=== PATIENT | female | born 1945 | race Hispanic/Latino ===

== ENCOUNTER 2016-11-24 18:32 | Emergency (ER) | payer MEDICARE ==
[2016-11-24 19:37] LABS: Basophils % (Auto) 0.9 % (0.0-1.8); Eosinophils % (Auto) 2.5 % (0.0-4.3); Hematocrit 35.2 % (30.3-42.9); Hemoglobin 11.9 gm/dl (10.1-14.3); Mean Corpuscular HGB Conc 34 % (30-34); Mean Corpuscular Hemoglobin 30 pg (28-32); Mean Corpuscular Volume 89 fl (79-97); Platelet Count 303 K/mm3 (140-440); Red Blood Count 3.97 M/mm3 (3.65-5.03); Red Cell Distribution Width 13.6 % (13.2-15.2); White Blood Count 8.5 K/mm3 (4.5-11.0)
[2016-11-24 19:53] LABS: Anion Gap 22 mmol/L; BUN/Creatinine Ratio 16.36; Blood Urea Nitrogen 18 mg/dL (7-17); Calcium 9.9 mg/dL (8.4-10.2); Carbon Dioxide 22 mmol/L (22-30); Chloride 83.9 mmol/L (98-107); Glucose 115 mg/dL (65-100); Potassium 4.4 mmol/L (3.6-5.0); Sodium 123 mmol/L (137-145)
[2016-11-24] MEDS ORDERED: APRESOLINE IV ONE (22:32)
[2016-11-24] MEDS ORDERED: ATIVAN IV ONE (22:32)
[2016-11-24] MEDS ORDERED: NACL 0.9% 1000 ML 1,000 ML IV ONE (22:32)
--- NOTE | 2016-11-24 22:34 | Emergency Department Report ---
ED Chest Pain HPI - General Chief Complaint: Chest Pain Stated Complaint: SOB/CHEST PAIN Time Seen by Provider: 11/24/16 22:16 Source: patient Mode of arrival: Ambulatory Limitations: No Limitations - History of Present Illness Initial Comments: Patient complains of headache as well as pounding in her chest starting suddenly while resting comfortably watching TV. Patient is well-known to me. I saw HER-2 days ago. She was also admitted to the hospital 6 nights ago and initial admission was for hypotension due to heart block from using beta nabil eyedrops. I saw her for same complaint as today. She was slightly hypertensive and anxious as well as complaining of headache at that time. Her presentation today is almost identical to her presentation from 2 days ago. Please refer to my note from 2 days ago. Specifically today she denies nausea. She denies any neurologic complaints but for the headache and some tingling in her arms bilaterally when this initially started. She has been compliant with the hydralazine losartan and isosorbide. She does produce demonstrate numbers of her blood pressure. They've ranged in the 150s to the 120s systolically over the past 2 days. Appointment with her doctor on Wednesday. MD Complaint: chest pain -: Sudden Pain Location: substernal Pain Radiation: none Severity: moderate Quality: heaviness Improves With: nothing Worsens With: nothing - Related Data Home Medications Medication Instructions Recorded Confirmed Last Taken Besifloxacin HCl [Besivance 0.6%] 1 drop OD DAILY 11/19/16 11/19/16 11/19/16 Cholecalciferol (Vitamin D3) 1 tab PO DAILY 11/19/16 11/19/16 11/19/16 [Vitamin D3] Difluprednate [Durezol 0.05%] 1 drop OU DAILY 11/19/16 11/19/16 11/19/16 Folic Acid 1 mg PO DAILY 11/19/16 11/19/16 11/19/16 Losartan/Hydrochlorothiazide 1 tab PO DAILY 11/19/16 11/19/16 11/19/16 [Losartan-Hctz 100-25 mg Tab] Meloxicam 15 mg PO DAILY 11/19/16 11/19/16 Unknown Nepafenac [Ilevro 0.3%] 1.7 ml OD DAILY 11/19/16 11/19/16 11/19/16 Nepafenac [Ilevro 0.3%] 1.7 ml OD DAILY 11/19/16 11/19/16 11/19/16 [place]-3 Fatty Acids/Fish Oil [Fish 1 tab PO DAILY 11/19/16 11/19/16 Unknown Oil 1,000 mg Softgel] Oxycodone HCl/Acetaminophen 1 tab PO Q6H PRN 11/19/16 11/19/16 11/19/16 [OxyCODONE-Acetaminophen 7.5-325] Potassium Chloride [Klor-Con M20] 20 meq PO DAILY 11/19/16 11/19/16 Unknown Pravastatin Sodium 40 mg PO DAILY 11/19/16 11/19/16 11/19/16 Promethazine HCl 25 mg PO PRN PRN 11/19/16 11/19/16 Unknown Tizanidine HCl 4 mg PO QHS 11/19/16 11/19/16 2 Days Ago Ubidecarenone [Coenzyme Q-10] 200 mg PO DAILY 11/19/16 11/19/16 11/19/16 Zolpidem Tartrate 10 mg PO QHS 11/19/16 11/19/16 11/18/16 Previous Rx's Medication Instructions Recorded Last Taken Type hydrALAZINE [Apresoline TAB] 25 mg PO BID #60 tablet 11/20/16 Unknown Rx hydrALAZINE [Apresoline TAB] 100 mg PO TID #90 tab 11/21/16 Unknown Rx ISOSORBIDE MONOnitrate [Imdur ER] 60 mg PO QDAY #30 tab.er.24h 11/23/16 Unknown Rx LORazepam [Ativan] 1 mg PO BID PRN #20 tab 11/24/16 Unknown Rx Allergies Allergy/AdvReac Type Severity Reaction Status Date / Time No Known Allergies Allergy Unverified 11/19/16 13:20 VU score - Vu Score Age > 65: (1) Yes Aspirin use within the Past 7 Days: (1) Yes 3 or more CAD Risk Factors: (0) No 2 or more Angina events in past 24 hrs: (1) Yes Known CAD with more than 50% Stenosis: (0) No Elevated Cardiac Markers: (0) No ST Deviation Greater than 0.5mm: (0) No VU Score: 3 ED Review of Systems ROS: Stated complaint: SOB/CHEST PAIN Other details as noted in HPI Comment: All other systems reviewed and negative Constitutional: denies: chills, fever Eyes: denies: eye pain, eye discharge, vision change ENT: denies: ear pain, throat pain Respiratory: denies: cough, shortness of breath, wheezing Cardiovascular: chest pain. denies: palpitations Endocrine: no symptoms reported Gastrointestinal: denies: abdominal pain, nausea, diarrhea Genitourinary: denies: urgency, dysuria, discharge Musculoskeletal: denies: back pain, joint swelling, arthralgia Skin: denies: rash, lesions Neurological: headache, paresthesias. denies: weakness Psychiatric: denies: anxiety, depression Hematological/Lymphatic: denies: easy bleeding, easy bruising ED Past Medical Hx - Past Medical History Hx Hypertension: Yes Additional medical history: thyroid - Surgical History Hx Appendectomy: Yes Additional Surgical History: hysterectomy. wrist surgery. knee surgery - Social History Smoking Status: Former Smoker Substance Use Type: Alcohol - Medications Home Medications: Home Medications Medication Instructions Recorded Confirmed Last Taken Type Besifloxacin HCl [Besivance 0.6%] 1 drop OD DAILY 11/19/16 11/19/16 11/19/16 History Cholecalciferol (Vitamin D3) 1 tab PO DAILY 11/19/16 11/19/16 11/19/16 History [Vitamin D3] Difluprednate [Durezol 0.05%] 1 drop OU DAILY 11/19/16 11/19/16 11/19/16 History Folic Acid 1 mg PO DAILY 11/19/16 11/19/16 11/19/16 History Losartan/Hydrochlorothiazide 1 tab PO DAILY 11/19/16 11/19/16 11/19/16 History [Losartan-Hctz 100-25 mg Tab] Meloxicam 15 mg PO DAILY 11/19/16 11/19/16 Unknown History Nepafenac [Ilevro 0.3%] 1.7 ml OD DAILY 11/19/16 11/19/16 11/19/16 History Nepafenac [Ilevro 0.3%] 1.7 ml OD DAILY 11/19/16 11/19/16 11/19/16 History [place]-3 Fatty Acids/Fish Oil [Fish 1 tab PO DAILY 11/19/16 11/19/16 Unknown History Oil 1,000 mg Softgel] Oxycodone HCl/Acetaminophen 1 tab PO Q6H PRN 11/19/16 11/19/16 11/19/16 History [OxyCODONE-Acetaminophen 7.5-325] Potassium Chloride [Klor-Con M20] 20 meq PO DAILY 11/19/16 11/19/16 Unknown History Pravastatin Sodium 40 mg PO DAILY 11/19/16 11/19/16 11/19/16 History Promethazine HCl 25 mg PO PRN PRN 11/19/16 11/19/16 Unknown History Tizanidine HCl 4 mg PO QHS 11/19/16 11/19/16 2 Days Ago History Ubidecarenone [Coenzyme Q-10] 200 mg PO DAILY 11/19/16 11/19/16 11/19/16 History Zolpidem Tartrate 10 mg PO QHS 11/19/16 11/19/16 11/18/16 History hydrALAZINE [Apresoline TAB] 25 mg PO BID #60 tablet 11/20/16 Unknown Rx hydrALAZINE [Apresoline TAB] 100 mg PO TID #90 tab 11/21/16 Unknown Rx ISOSORBIDE MONOnitrate [Imdur ER] 60 mg PO QDAY #30 tab.er.24h 11/23/16 Unknown Rx LORazepam [Ativan] 1 mg PO BID PRN #20 tab 11/24/16 Unknown Rx ED Physical Exam - General Limitations: No Limitations General appearance: alert, in no apparent distress, anxious - Head Head exam: Present: atraumatic, normocephalic - Eye Eye exam: Present: normal appearance, EOMI. Absent: scleral icterus - ENT ENT exam: Present: normal exam, normal orophraynx, mucous membranes moist - Neck Neck exam: Present: normal inspection, full ROM. Absent: tenderness - Respiratory Respiratory exam: Present: normal lung sounds bilaterally. Absent: respiratory distress, wheezes, rales - Cardiovascular Cardiovascular Exam: Present: regular rate, normal rhythm. Absent: systolic murmur, diastolic murmur, rubs, gallop - GI/Abdominal GI/Abdominal exam: Present: soft, normal bowel sounds. Absent: tenderness, guarding - Extremities Exam Extremities exam: Present: normal inspection. Absent: tenderness, pedal edema, calf tenderness - Back Exam Back exam: Present: normal inspection, full ROM. Absent: tenderness, CVA tenderness (R), CVA tenderness (L) - Neurological Exam Neurological exam: Present: alert, oriented X3, CN II-XII intact, normal gait, reflexes normal. Absent: motor sensory deficit - Psychiatric Psychiatric exam: Present: normal affect, normal mood - Skin Skin exam: Present: warm, dry, intact, normal color. Absent: rash ED Course Vital Signs 11/24/16 11/24/16 11/24/16 18:52 21:30 22:33 Temperature 97.6 F 98.8 F Pulse Rate 103 H 74 Respiratory 20 18 Rate Blood Pressure 195/90 Blood Pressure 144/90 [Left] O2 Sat by Pulse 100 97 97 Oximetry 11/24/16 11/24/16 23:00 23:22 Temperature 98.7 F Pulse Rate 81 84 Respiratory 17 Rate Blood Pressure 170/63 Blood Pressure 170/76 [Left] O2 Sat by Pulse 98 Oximetry - Reevaluation(s) Reevaluation #1: 11/24/16 22:37 Taking a step back to consider this case, I feel that of been very thorough both 2 days ago as well as today. Neurologically she is completely intact. I have 2 sets of labs that are unremarkable but for sodium. She has A history of long-standing low sodium. Will give normal saline today to increase sodium. She does indicate as well that she is quite anxious as a baseline. I personally feel this is the major component. With her prescription today of having the bilateral arm tingling, associated with chest heaviness, just have a suspicion that this is the her current triggered her. I feel this also due to her being somewhat refractory when I do get blood pressure medications here. I now have 3 separate ECGs as well as several hours on the monitor that they've been able to address her conditions. None of These are demonstrated any ischemic presentation. 11/24/16 22:40 Reevaluation #2: 11/24/16 22:42 ECG at 2157 with normal sinus rhythm at 97 bpm with a normal NV and QRS. Normal axis normal ECG. Unchanged from prior. 11/24/16 22:43 Reevaluation #3: 11/25/16 06:08 Patient was observed for a time her blood pressure did improve. Clearly seems to have anxietyy incontinent to her presentation. She agrees to follow-up with her doctor on Wednesday. Safe for home. ED Medical Decision Making - Lab Data Result diagrams: 11/24/16 19:23 11/24/16 19:23 Critical care attestation.: If time is entered above; I have spent that time in minutes in the direct care of this critically ill patient, excluding procedure time. ED Disposition Clinical Impression: Anxiety, Hyponatremia Chest pain Qualifiers: Chest pain type: precordial chest pain Qualified Code(s): R07.2 - Precordial pain HTN (hypertension) Qualifiers: Hypertension type: essential hypertension Qualified Code(s): I10 - Essential ( primary) hypertension Disposition: DISCHARGED TO HOME OR SELFCARE Is pt being admited?: No Does the pt Need Aspirin: No Condition: Stable Instructions: Hyponatremia (ED) Additional Instructions: Continue with your current dose of isosorbide mononitrate. Take the hydralazine 25mg 4 x/day. Continue with the losartan as prescribed. COntinue to keep a log of your blood pressure. Follow with your doctor for continued management of this and your hyponatremia (low sodium). Practice relaxation techniques as needed. Prescriptions: LORazepam [Ativan] 1 mg PO BID PRN #20 tab PRN Reason: Anxiety Referrals: PRIMARY CARE, [Primary Care Provider] - 3-5 Days Time of Disposition: 23:48
[2016-11-25 00:13] VITALS: BP 170/76
== END 2016-11-25 00:14 | disposition home or self-care (01) ==
LOC: ED 18:32
DX: I10 Essential (primary) hypertension (principal); F41.9 Anxiety disorder, unspecified; E87.1 Hypo-osmolality and hyponatremia; Z90.710 Acquired absence of both cervix and uterus; Z87.891 Personal history of nicotine dependence; Z90.49 Acquired absence of other specified parts of digestive tract; Z79.899 Other long term (current) drug therapy; Z98.890 Other specified postprocedural states
CPT/HCPCS: 36415; 80048; 83930; 83935; 84484; 85025; 93005; 93010; 96361; 96374; 96375; 99284; J0360; J2060; J7030

== ENCOUNTER 2016-12-28 09:06 | Outpatient (CLI) | payer MEDICARE ==
--- NOTE | 2016-12-30 08:13 | Vascular Lab Report ---
RENAL ARTERY DUPLEX EXAM: REASON FOR EXAM: Hypertension. NOTE: Visualization is technically limited due to bowel gas. COMMENTS ON THE AORTA: The aorta is patent. Normal flow velocities are observed. No aneurysmal dilatation is noted. Mild atherosclerotic change is identified. The celiac artery is not visualized. The superior mesenteric artery is patent with normal flow velocity. COMMENTS ON THE RIGHT KIDNEY: The kidney measures 12.5 centimeters in greatest dimension. Right renal cyst measuring 4 x 0.3 4 x 4 centimeters noted The renal artery is patent. Maximum systolic velocity is 162 cm/sec. This finding is consistent with less than 60% diameter reduction. Renal aortic index is 2.2. This finding is consistent with less than 60% diameter reduction. Overall findings are consistent with less than 60% diameter reduction in the renal artery. COMMENTS ON THE LEFT KIDNEY: The kidney measures 10.5 centimeters in greatest dimension. No obvious parenchymal abnormalities are noted. The renal artery is patent. Maximum systolic velocity is 143 cm/sec. This finding is consistent with less than 60% diameter reduction. Renal aortic index is 1.9. This finding is consistent with less than 60% diameter reduction. Overall findings are consistent with less than 60% diameter reduction in the renal artery. IMPRESSION: RIGHT KIDNEY: Less than 60% diameter reduction in the renal artery. LEFT KIDNEY: Less than 60% diameter reduction in the renal artery.
== END 2016-12-28 09:07 | disposition home or self-care (01) ==
LOC: VAS 09:06
PROVIDERS: ATTEND Internal Medicine Cardiovascular Disease
DX: I10 Essential (primary) hypertension (principal); N28.1 Cyst of kidney, acquired
CPT/HCPCS: 93975